=== PATIENT | male | born 1970 | race African-American/Black ===

== ENCOUNTER 2017-06-24 22:27 | Emergency (ER) | payer SELFPAY ==
[2017-06-24 22:32] VITALS: BP 120/77; PULSE 68; TEMP 98.6; BMI 21.7
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
[2017-06-24] MEDS ORDERED: KETOROLAC TROMETHAMINE 60 MG/2 ML VIAL IM ONE (22:51)
[2017-06-24] MEDS ORDERED: KETOROLAC TROMETHAMINE 60 MG/2 ML VIAL ONE (22:54)
== END 2017-06-24 23:21 | disposition home or self-care (01) ==
LOC: FER 22:27
PROC: 3E0333Z Introduction of Anti-inflammatory into Peripheral Vein, Percutaneous Approach (ICD-10-PCS; principal; 2017-06-24)
DX: S70.02XD Contusion of left hip, subsequent encounter (principal); S70.12XD Contusion of left thigh, subsequent encounter; V49.9XXD Car occupant (driver) (passenger) injured in unspecified traffic accident, subsequent encounter; Y92.9 Unspecified place or not applicable; Z87.891 Personal history of nicotine dependence
CPT/HCPCS: 99281-25